=== PATIENT | male | born 1985 | race Caucasian/White ===

== ENCOUNTER 2016-11-02 14:23 | Emergency (ER) | payer OTHER ==
[~2016-11-02] VITALS: Wt 89.8 kg
[~2016-11-02 14:23] MED LIST: 'PARAFON FORTE500 M1 PO; AMOXICILLIN500 MG PO; ANAPROX DS550 MG PO; ASPIR 8181 MG; AUGMENTIN 875 M1 TAB PO; AUGMENTIN 875875 MG PO; BACTRIM DS 8001 TA1 PO; BP MED PO; CLARITIN-D 12 H1 TAB PO; CLARITIN10 MG PO; CLEOCIN150 MG PO; CLINDAMYCIN HC300 MG PO; DARVOCET N 1001 TAB PO; FLEXERIL10 MG PO; FLONASE ALLERG9.9 ML NAS; IBU-8800 MG PO; IBU800 MG PO; KEFLEX500 MG PO; KLONOPIN1 M1 PO; LIDOCAINE VISC100 ML MM; MEDROL DOSEPAK4 MG PO; METOPROLOL25 MG PO; MOTRIN800 MG PO; Motrin,Rufen800 MG PO; NAPROSYN500 MG PO; NEURONTIN300 MG PO; NORCO 5-325 TA1 EACH PO; PREDNICOT20 MG PO; PREDNISONE10 MG PO; PRILOSEC20 MG; PRILOSEC40 MG PO; PYRIDIUM200 M1 PO; Peridex 473 ML473 ML PO; ROBITUSSIN DM 105 ML PO; SKELAXIN800 MG PO; TRAMADOL HCL50 MG PO; TRIMOX500 MG PO; VALIUM5 MG PO; VICODIN 5/500 505 MG PO; XANAX1 MG; ZITHROMAX Z PA250 MG PO; ZOFRAN ODT4 MG SL
[2016-11-02] MEDS ORDERED: NAPROSYN500 MG PO (14:52)
[2016-11-02] MEDS ORDERED: 'PARAFON FORTE500 M1 PO (14:52)
[2016-11-02 17:03] VITALS: BP 132/82
[2016-11-02] MEDS ORDERED: Motrin,Rufen800 MG PO (17:16)
== END 2016-11-02 17:01 | disposition home or self-care (01) ==
LOC: ED 14:23
DX: S39.011A Strain of muscle, fascia and tendon of abdomen, initial encounter (principal); R03.0 Elevated blood-pressure reading, without diagnosis of hypertension; F17.200 Nicotine dependence, unspecified, uncomplicated; Z98.890 Other specified postprocedural states; Z79.899 Other long term (current) drug therapy; Z88.4 Allergy status to anesthetic agent; X58.XXXA Exposure to other specified factors, initial encounter; Y93.89 Activity, other specified; Y92.89 Other specified places as the place of occurrence of the external cause; Y99.9 Unspecified external cause status

== ENCOUNTER 2017-02-26 15:24 | Emergency (ER) | payer OTHER ==
[~2017-02-26] VITALS: Wt 89.8 kg
[2017-02-26] MEDS ORDERED: 'XANAX1 MG PO (15:36)
[2017-02-26 16:01] VITALS: BP 126/88
[2017-02-26] MEDS ORDERED: VISTARIL25 MG PO (16:03)
[2017-02-26] MEDS ORDERED: ZOFRAN ODT4 MG SL (16:03)
== END 2017-02-26 16:08 | disposition home or self-care (01) ==
LOC: ED 15:24
DX: F41.9 Anxiety disorder, unspecified (principal); F17.200 Nicotine dependence, unspecified, uncomplicated; Z88.8 Allergy status to other drugs, medicaments and biological substances; Z79.82 Long term (current) use of aspirin; Z79.899 Other long term (current) drug therapy

== ENCOUNTER 2017-07-15 13:07 | Emergency (ER) | payer OTHER ==
[~2017-07-15] VITALS: Wt 89.8 kg
[~2017-07-15 13:07] MED LIST changes: +'XANAX1 MG PO; +VISTARIL25 MG PO
[2017-07-15 13:08] VITALS: BP 141/82
[2017-07-15] MEDS ORDERED: ROBITUSSIN DM 105 ML PO (13:15)
[2017-07-15] MEDS ORDERED: FLONASE ALLERG9.9 ML NAS (13:15)
[2017-07-15] MEDS ORDERED: PREDNISONE10 MG PO (13:15)
[2017-07-15] MEDS ORDERED: CLARITIN10 MG PO (13:15)
[2017-07-15 14:30] LABS: BASO # 0.1 10*3/uL (0.0-0.1); BASO % 0.3 % (0.0-1.0); EOS # 0.2 10*3/uL (0.0-0.4); EOS % 1.1 % (1.0-4.0); HEMATOCRIT 47.2 % (42.0-52.0); HEMOGLOBIN 16.3 g/dl (14.0-18.0); LYMPH # 3.8 10*3/uL (1.3-4.4); LYMPH % 23.9 % (27.0-41.0); MEAN CELL VOLUME 92.2 fl (80.0-94.0); MEAN CORPUSCULAR HGB 31.8 pg (27.0-31.0); MEAN CORPUSCULAR HGB CONC 34.5 g/dl (33.0-37.0); MEAN PLATELET VOLUME 11.1 fl (9.6-12.3); MONO % 6.3 % (3.0-9.0); NEUT # 10.7 10*3/uL (2.3-7.9); NEUT % 68.1 % (47.0-73.0); PLATELET COUNT AUTOMATED 192 10*3/uL (130-400); RED BLOOD COUNT 5.12 10*6/uL (4.50-5.90); RED CELL DISTRI WIDTH 12.3 % (0-14.5); WHITE BLOOD COUNT 15.7 10*3/uL (4.8-10.8)
[2017-07-15 14:42] LABS: BUN 12 mg/dl (7-24); CHLORIDE 101 mmol/L (98-107); CREATININE 1.12 mg/dL (0.70-1.30); POTASSIUM 3.9 mmol/L (3.5-5.1); SODIUM 139 mmol/L (136-145)
== END 2017-07-15 17:42 | disposition home or self-care (01) ==
LOC: ED 13:07
PROVIDERS: Nurse Practitioner Family
DX: I71.2 Thoracic aortic aneurysm, without rupture (principal); B34.9 Viral infection, unspecified; R03.0 Elevated blood-pressure reading, without diagnosis of hypertension; F17.200 Nicotine dependence, unspecified, uncomplicated; Z98.890 Other specified postprocedural states; Z79.82 Long term (current) use of aspirin; Z79.899 Other long term (current) drug therapy; Z88.8 Allergy status to other drugs, medicaments and biological substances

== ENCOUNTER 2017-12-03 12:18 | Emergency (ER) | payer OTHER ==
[~2017-12-03] VITALS: Ht 185.4 cm; Wt 85.7 kg
[2017-12-03 12:24] VITALS: BP 131/78
[2017-12-03] MEDS ORDERED: ELIMITE 5%60 GM T (12:42)
[2017-12-03] MEDS ORDERED: BENADRYL ALLERG25 M5 PO (12:42)
== END 2017-12-03 12:39 | disposition home or self-care (01) ==
LOC: ED 12:18
DX: B86 Scabies (principal); Z88.4 Allergy status to anesthetic agent; Z79.899 Other long term (current) drug therapy

== ENCOUNTER 2017-12-18 14:52 | Emergency (ER) | payer OTHER ==
[~2017-12-18] VITALS: Ht 185.4 cm; Wt 85.7 kg
[~2017-12-18 14:52] MED LIST changes: +BENADRYL ALLERG25 M5 PO; +ELIMITE 5%60 GM T
[2017-12-18 14:55] VITALS: BP 113/68
[2017-12-18] MEDS ORDERED: BENADRYL25 M2 PO (15:01)
[2017-12-18] MEDS ORDERED: MEDROL DOSEPAK4 MG PO (15:01)
== END 2017-12-18 15:01 | disposition home or self-care (01) ==
LOC: ED 14:52
DX: L23.7 Allergic contact dermatitis due to plants, except food (principal); Z79.899 Other long term (current) drug therapy; Z88.4 Allergy status to anesthetic agent

== ENCOUNTER 2018-01-08 13:43 | Emergency (ER) | payer OTHER ==
[~2018-01-08] VITALS: Ht 185.4 cm; Wt 83.9 kg
[~2018-01-08 13:43] MED LIST changes: +BENADRYL25 M2 PO
[2018-01-08 14:22] LABS: BASO # 0.1 10*3/uL (0.0-0.1); BASO % 0.6 % (0.0-1.0); EOS # 0.2 10*3/uL (0.0-0.4); EOS % 1.9 % (1.0-4.0); HEMATOCRIT 48.1 % (42.0-52.0); HEMOGLOBIN 16.3 g/dl (14.0-18.0); LYMPH # 3.9 10*3/uL (1.3-4.4); LYMPH % 36.3 % (27.0-41.0); MEAN CELL VOLUME 89.9 fl (80.0-94.0); MEAN CORPUSCULAR HGB 30.5 pg (27.0-31.0); MEAN CORPUSCULAR HGB CONC 33.9 g/dl (33.0-37.0); MEAN PLATELET VOLUME 11.2 fl (9.6-12.3); MONO # 0.9 10*3/uL (0.1-1.0); MONO % 8.5 % (3.0-9.0); NEUT # 5.6 10*3/uL (2.3-7.9); NEUT % 52.1 % (47.0-73.0); PLATELET COUNT AUTOMATED 249 10*3/uL (130-400); RED BLOOD COUNT 5.35 10*6/uL (4.50-5.90); RED CELL DISTRI WIDTH 12.6 % (0-14.5); WHITE BLOOD COUNT 10.8 10*3/uL (4.8-10.8)
[2018-01-08 14:28] LABS: ACT PARTIAL THROMBO TIME 23.5 SECONDS (20.8-31.5); INTERNATIONAL NORM RATIO 0.9 (2.0-3.5)
[2018-01-08 14:34] LABS: ALBUMIN 3.9 gm/dl (3.1-4.5); ALKALINE PHOSPHATASE 119 U/L (45-117); BUN 10 mg/dl (7-24); CHLORIDE 104 mmol/L (98-107); CREATININE 1.17 mg/dL (0.70-1.30); LIPASE 97 U/L (73-393); SGOT/AST 33 IU/L (3-35); SGPT/ALT 137 U/L (12-78); SODIUM 138 mmol/L (136-145); TOTAL PROTEIN 7.5 gm/dL (6.4-8.2); TROPONIN I < 0.015 ng/ml (<0.045)
[2018-01-08 15:04] LABS: BILIRUBIN NEGATIVE (NEGATIVE); BLOOD 1+ (NEGATIVE); CLARITY CLEAR (CLEAR); COLOR YELLOW (YELLOW); GLUCOSE NEGATIVE (NEGATIVE); KETONE NEGATIVE (NEGATIVE); LEUKO ESTERASE NEGATIVE (NEGATIVE); NITRITE NEGATIVE (NEGATIVE); PH 7.5 (5.0-9.0); UROBILINOGEN 0.2 E.U./dl (0.2-1.0)
[2018-01-08 15:09] VITALS: BP 126/73
[2018-01-08 15:12] LABS: EPITHELIAL CELLS 0-2; WBC 0-2 wbc/hpf (0-5)
== END 2018-01-08 16:01 | disposition home or self-care (01) ==
LOC: ED 13:43
PROVIDERS: Emergency Medicine
DX: K29.00 Acute gastritis without bleeding (principal); Z88.4 Allergy status to anesthetic agent; Z79.899 Other long term (current) drug therapy

== ENCOUNTER 2018-09-17 09:23 | Emergency (ER) | payer OTHER ==
[2018-09-17 09:26] VITALS: BP 123/78
[2018-09-17] MEDS ORDERED: PREDNISONE20 M1 PO (12:23)
[2018-09-17] MEDS ORDERED: AMOXICILLIN500 M2 PO (12:23)
[2018-09-17] MEDS ORDERED: ROBITUSSIN DM 105 ML PO (12:23)
[2019-01-12] MEDS ORDERED: ZITHROMAX250 MG PO (13:07)
== END 2018-09-17 12:45 | disposition home or self-care (01) ==
LOC: ED 09:23
DX: J20.9 Acute bronchitis, unspecified (principal); Z88.4 Allergy status to anesthetic agent; Z79.899 Other long term (current) drug therapy

== ENCOUNTER → 2019-06-11 | Outpatient (CLI) | payer OTHER ==
[~2019-06-11] MED LIST changes: +AMOXICILLIN500 M2 PO; +PREDNISONE20 M1 PO; +ZITHROMAX250 MG PO
[2019-06-11 14:34] LABS: BUN 18 mg/dl (7-24); CHLORIDE 103 mmol/L (98-107); CREATININE 1.11 mg/dL (0.70-1.30); POTASSIUM 4.1 mmol/L (3.5-5.1); SODIUM 137 mmol/L (136-145)
[2019-06-14 15:05] LABS: GLUTAMIC ACID DECARB AB 143008 143.7 U/mL (0.0-5.0)
== END | disposition home or self-care (01) ==
LOC: LAB 13:53
PROVIDERS: Internal Medicine Endocrinology, Diabetes & Metabolism
DX: E11.65 Type 2 diabetes mellitus with hyperglycemia (principal); E55.9 Vitamin D deficiency, unspecified

== ENCOUNTER 2019-07-26 09:33 | Emergency (ER) | payer OTHER, MEDICARE ==
[~2019-07-26] VITALS: Ht 185.4 cm; Wt 83.9 kg
[2019-07-26 11:45] VITALS: BP 121/78
[2019-07-26] MEDS ORDERED: ROBAXIN-750750 MG PO (11:46)
== END 2019-07-26 12:04 | disposition home or self-care (01) ==
LOC: ED 09:33
DX: S13.4XXA Sprain of ligaments of cervical spine, initial encounter (principal); S40.022A Contusion of left upper arm, initial encounter; Z88.6 Allergy status to analgesic agent; Z79.899 Other long term (current) drug therapy; Z79.82 Long term (current) use of aspirin; V49.9XXA Car occupant (driver) (passenger) injured in unspecified traffic accident, initial encounter; Y93.89 Activity, other specified; Y92.89 Other specified places as the place of occurrence of the external cause; Y99.8 Other external cause status

== ENCOUNTER 2019-10-02 11:31 | Emergency (ER) | payer MEDICARE ==
[~2019-10-02] VITALS: Ht 185.4 cm; Wt 82.6 kg
[~2019-10-02 11:31] MED LIST changes: +ROBAXIN-750750 MG PO
[2019-10-02 11:36] VITALS: BP 112/68
[2019-10-02] MEDS ORDERED: AMOXICILLIN500 M2 PO (11:56)
== END 2019-10-02 12:05 | disposition home or self-care (01) ==
LOC: ED 11:31
DX: K11.5 Sialolithiasis (principal); Z88.4 Allergy status to anesthetic agent; Z79.899 Other long term (current) drug therapy; Z79.82 Long term (current) use of aspirin; Z87.891 Personal history of nicotine dependence

== ENCOUNTER 2020-03-05 14:32 | Emergency (ER) | payer MEDICARE ==
[~2020-03-05] VITALS: Ht 185.4 cm; Wt 82.6 kg
[2020-03-05 14:48] VITALS: BP 149/90
[2020-03-05] MEDS ORDERED: KENALOG 0.025%15 GM T (14:52)
== END 2020-03-05 15:22 | disposition home or self-care (01) ==
LOC: ED 14:32
DX: L25.9 Unspecified contact dermatitis, unspecified cause (principal); E10.9 Type 1 diabetes mellitus without complications; Z88.4 Allergy status to anesthetic agent; Z79.899 Other long term (current) drug therapy; Z79.82 Long term (current) use of aspirin

== ENCOUNTER → 2020-07-20 | Outpatient (CLI) | payer MEDICARE ==
[~2020-07-20] MED LIST changes: +KENALOG 0.025%15 GM T
[2020-07-20 14:16] LABS: BUN 15 mg/dl (7-24); CREATININE 1.21 mg/dL (0.70-1.30)
== END | disposition home or self-care (01) ==
LOC: LAB 13:45
PROVIDERS: ATTEND Surgery
DX: I35.1 Nonrheumatic aortic (valve) insufficiency (principal)

== ENCOUNTER 2021-08-30 15:31 | Emergency (ER) | payer MEDICARE ==
[2021-08-30 16:00] LABS: MEAN CELL VOLUME 91.2 fl (80.0-94.0); MEAN CORPUSCULAR HGB 32.2 pg (27.0-31.0); MEAN CORPUSCULAR HGB CONC 35.3 g/dl (33.0-37.0); MEAN PLATELET VOLUME 10.9 fl (9.6-12.3); PLATELET COUNT AUTOMATED 221 10*3/uL (130-400); RED BLOOD COUNT 5.37 10*6/uL (4.50-5.90); RED CELL DISTRI WIDTH 12.6 % (0-14.5); WHITE BLOOD COUNT 13.9 10*3/uL (4.8-10.8)
[2021-08-30 16:11] LABS: ACT PARTIAL THROMBO TIME 25.8 SECONDS (20.0-32.1)
[2021-08-30 16:15] LABS: ALBUMIN 3.9 gm/dl (3.1-4.5); ALKALINE PHOSPHATASE 127 U/L (45-117); BUN 14 mg/dl (7-24); CHLORIDE 99 mmol/L (98-107); CREATININE 1.21 mg/dL (0.70-1.30); POTASSIUM 3.5 mmol/L (3.5-5.1); SGOT/AST 71 IU/L (3-35); SGPT/ALT 130 U/L (12-78); SODIUM 135 mmol/L (136-145); TOTAL PROTEIN 7.6 gm/dL (6.4-8.2)
[2021-08-30 16:21] LABS: ATYPICAL LYMPHS 4 % (0-0); BASOPHILS 1 % (0-1); PLATELET SUFFICIENCY NORMAL (NORMAL); TOTAL CELLS COUNTED 100 #CELLS
[2021-08-30 17:45] VITALS: BP 132/64
== END 2021-08-30 20:43 | disposition home or self-care (01) ==
LOC: ED 15:31
PROVIDERS: Emergency Medicine
DX: I47.1 Supraventricular tachycardia (principal); D72.829 Elevated white blood cell count, unspecified; R79.89 Other specified abnormal findings of blood chemistry; E11.65 Type 2 diabetes mellitus with hyperglycemia; Z88.4 Allergy status to anesthetic agent; Z79.899 Other long term (current) drug therapy

== ENCOUNTER → 2022-06-30 | Outpatient (CLI) | payer MEDICARE ==
[2022-06-30 13:22] LABS: BILIRUBIN Negative (Negative); BLOOD 2+ (Negative); CLARITY Clear (Clear); COLOR Yellow (Yellow); GLUCOSE 1+ (Negative); KETONE Trace (Negative); LEUKO ESTERASE Negative (Negative); NITRITE Negative (Negative); PH 6.5 (4.5-8.0)
[2022-06-30 13:23] LABS: BASO # 0.1 10*3/uL (0.0-0.1); EOS # 0.2 10*3/uL (0.0-0.4); EOS % 2.8 % (1.0-4.0); HEMATOCRIT 49.9 % (42.0-52.0); LYMPH # 2.6 10*3/uL (1.3-4.4); LYMPH % 31.1 % (27.0-41.0); MEAN CELL VOLUME 92.8 fl (80.0-94.0); MEAN CORPUSCULAR HGB 32.5 pg (27.0-31.0); MEAN CORPUSCULAR HGB CONC 35.1 g/dl (33.0-37.0); MEAN PLATELET VOLUME 11.4 fl (9.6-12.3); MONO # 0.8 10*3/uL (0.1-1.0); MONO % 9.6 % (3.0-9.0); NEUT # 4.5 10*3/uL (2.3-7.9); NEUT % 55.1 % (47.0-73.0); PLATELET COUNT AUTOMATED 175 10*3/uL (130-400); RED BLOOD COUNT 5.38 10*6/uL (4.50-5.90); RED CELL DISTRI WIDTH 12.2 % (0-14.5); RETICULOCYTE % 2.24 % (0.50-2.50); WHITE BLOOD COUNT 8.2 10*3/uL (4.8-10.8)
[2022-06-30 13:40] LABS: ALKALINE PHOSPHATASE 122 U/L (45-117); BUN 11 mg/dl (7-24); CHLORIDE 102 mmol/L (98-107); CHOLESTEROL 216 mg/dL (<200); CREATININE 0.93 mg/dL (0.70-1.30); GAMMA GLUTAMYL TRANSPEPTIDASE 134 U/L (15-85); IRON 103 ug/dL (65-175); LDL CHOLESTEROL 154 mg/dL (9-159); POTASSIUM 4.3 mmol/L (3.5-5.1); SGPT/ALT 68 U/L (12-78); SODIUM 136 mmol/L (136-145); TOTAL PROTEIN 7.4 gm/dL (6.4-8.2); TRIGLYCERIDES 125 mg/dl (<150)
[2022-06-30 13:54] LABS: RBC 16-20 rbc/hpf (0-2)
[2022-06-30 13:55] LABS: BACTERIA TRACE; EPITHELIAL CELLS 0-2
[2022-06-30 15:10] LABS: VITAMIN D, 25-HYDROXY 21.7 ng/mL (30-100)
[2022-07-01 08:07] LABS: CREATININE,URINE 199.1 mg/dL (Not Estab.)
== END | disposition home or self-care (01) ==
LOC: LAB 12:38
PROVIDERS: ATTEND Family Medicine
DX: R79.89 Other specified abnormal findings of blood chemistry (principal); R53.83 Other fatigue; E78.5 Hyperlipidemia, unspecified; E55.9 Vitamin D deficiency, unspecified; R74.8 Abnormal levels of other serum enzymes

== ENCOUNTER → 2022-12-22 | Outpatient (CLI) | payer MEDICARE ==
[2022-12-22 15:02] LABS: BILIRUBIN Negative (Negative); BLOOD 1+ (Negative); CLARITY Clear (Clear); COLOR Yellow (Yellow); GLUCOSE 3+ (Negative); KETONE Trace (Negative); LEUKO ESTERASE Negative (Negative); NITRITE Negative (Negative); PH 7.5 (4.5-8.0); SPECIFIC GRAVITY 1.015 (1.001-1.030)
[2022-12-22 15:30] LABS: BACTERIA TRACE
[2022-12-22 15:43] LABS: ALKALINE PHOSPHATASE 116 U/L (46-116); BUN 9 mg/dl (9-23); CHLORIDE 96 mmol/L (98-107); CHOLESTEROL 227 mg/dL (<200); LDL CHOLESTEROL 141 mg/dL (9-159); SGPT/ALT 93 U/L (10-49); THYROID STIM HORMONE (HS) 1.366 uIU/ml (0.550-4.780); TOTAL PROTEIN 7.4 gm/dL (6.0-8.0); TRIGLYCERIDES 198 mg/dl (<150)
== END | disposition home or self-care (01) ==
LOC: LAB 14:40
PROVIDERS: ATTEND Internal Medicine
DX: E10.65 Type 1 diabetes mellitus with hyperglycemia (principal); E55.9 Vitamin D deficiency, unspecified; E04.9 Nontoxic goiter, unspecified; E78.5 Hyperlipidemia, unspecified

== ENCOUNTER 2023-07-02 19:10 | Emergency (ER) | payer MEDICARE ==
[~2023-07-02] VITALS: Ht 185.4 cm; Wt 89.8 kg
[2023-07-02 20:02] LABS: BASO # 0.1 10*3/uL (0.0-0.1); BASO % 0.6 % (0.0-1.0); EOS # 0.2 10*3/uL (0.0-0.4); EOS % 1.5 % (1.0-4.0); HEMATOCRIT 49.2 % (42.0-52.0); LYMPH # 4.8 10*3/uL (1.3-4.4); LYMPH % 42.9 % (27.0-41.0); MEAN CELL VOLUME 91.8 fl (80.0-94.0); MEAN PLATELET VOLUME 11.1 fl (9.6-12.3); MONO # 0.9 10*3/uL (0.1-1.0); MONO % 8.1 % (3.0-9.0); NEUT # 5.2 10*3/uL (2.3-7.9); NEUT % 46.6 % (47.0-73.0); PLATELET COUNT AUTOMATED 193 10*3/uL (130-400); RED BLOOD COUNT 5.36 10*6/uL (4.50-5.90); RED CELL DISTRI WIDTH 12.5 % (0-14.5); WHITE BLOOD COUNT 11.1 10*3/uL (4.8-10.8)
[2023-07-02 20:12] LABS: ACT PARTIAL THROMBO TIME 25.4 SECONDS (20.0-32.1)
[2023-07-02 20:27] LABS: ALKALINE PHOSPHATASE 143 U/L (46-116); BUN 15 mg/dl (9-23); CHLORIDE 99 mmol/L (98-107); ETHYL ALCOHOL < 3.0 mg/dl (<3); LIPASE 62 U/L (12-53); POTASSIUM 3.9 mmol/L (3.4-5.1); SGPT/ALT 121 U/L (5-49); TOTAL PROTEIN 7.3 gm/dL (6.0-8.0)
[2023-07-02 20:28] LABS: BILIRUBIN Negative (Negative); BLOOD 1+ (Negative); CLARITY Clear (Clear); COLOR Yellow (Yellow); GLUCOSE 3+ (Negative); KETONE Trace (Negative); LEUKO ESTERASE Negative (Negative); NITRITE Negative (Negative); SPECIFIC GRAVITY >= 1.030 (1.001-1.030)
[2023-07-02 20:35] LABS: URINE AMPHETAMINES Negative (1000ng/ml); URINE BARBITURATES Negative (200ng/ml); URINE BENZODIAZEPINES Positive (200ng/ml); URINE CANNABINOIDS (THC) Positive (50ng/ml); URINE COCAINE Negative (300ng/ml); URINE METHADONE Negative (300ng/ml); URINE OPIATES Negative (300ng/ml); URINE PHENCYCLIDINE Negative (25ng/ml)
[2023-07-02 20:40] LABS: WBC 0-2 wbc/hpf (0-5)
[2023-07-03 00:14] VITALS: BP 145/82
== END 2023-07-03 00:41 | disposition home or self-care (01) ==
LOC: ED 19:10
PROVIDERS: Internal Medicine
DX: I47.10 Supraventricular tachycardia, unspecified (principal); E11.9 Type 2 diabetes mellitus without complications; F31.9 Bipolar disorder, unspecified; Z88.8 Allergy status to other drugs, medicaments and biological substances; Z98.890 Other specified postprocedural states; Z79.899 Other long term (current) drug therapy

== ENCOUNTER → 2023-10-12 | Outpatient (CLI) | payer MEDICARE ==
[2023-10-12 11:08] LABS: BILIRUBIN Negative (Negative); BLOOD 1+ (Negative); CLARITY Clear (Clear); COLOR Yellow (Yellow); GLUCOSE 3+ (Negative); KETONE Trace (Negative); LEUKO ESTERASE Negative (Negative); NITRITE Negative (Negative); SPECIFIC GRAVITY >= 1.030 (1.001-1.030)
[2023-10-12 11:15] LABS: BUN 11 mg/dl (9-23); CHLORIDE 101 mmol/L (98-107); POTASSIUM 3.9 mmol/L (3.4-5.1)
[2023-10-12 11:21] LABS: FREE T4 1.19 ng/dl (0.89-1.76); TOTAL PROTEIN 7.1 gm/dL (6.0-8.0)
[2023-10-12 11:27] LABS: MUCOUS TRACE; RBC 21-30 rbc/hpf (0-2)
== END | disposition home or self-care (01) ==
LOC: LAB 10:27
PROVIDERS: ATTEND Internal Medicine
DX: Z01.812 Encounter for preprocedural laboratory examination (principal); E10.65 Type 1 diabetes mellitus with hyperglycemia; E55.9 Vitamin D deficiency, unspecified; E04.9 Nontoxic goiter, unspecified; E78.5 Hyperlipidemia, unspecified

== ENCOUNTER → 2023-10-13 | Outpatient (CLI) | payer MEDICARE ==
[~2023-10-13] MED LIST changes: +IOHEXOL 350 MG/ML 100 ML VIAL IV ONE; +SODIUM CHLORIDE 0.9% 100 ML BAG IV ONE
== END | disposition home or self-care (01) ==
LOC: CT 01:13
PROVIDERS: ATTEND Family Medicine
DX: I71.20 Thoracic aortic aneurysm, without rupture, unspecified (principal); K76.0 Fatty (change of) liver, not elsewhere classified; Z98.890 Other specified postprocedural states

== ENCOUNTER 2024-03-01 20:33 | Emergency (ER) | payer MEDICARE ==
[~2024-03-01] VITALS: Ht 187.9 cm; Wt 86.2 kg
[2024-03-01 20:33] VITALS: BP 150/68
[~2024-03-01 20:33] MED LIST changes: -IOHEXOL 350 MG/ML 100 ML VIAL IV ONE; -SODIUM CHLORIDE 0.9% 100 ML BAG IV ONE
[2024-03-01] MEDS ORDERED: diphenhydrAMINE hydrochloride 50 MG/ML VIAL IM ONE (21:00)
[2024-03-01] MEDS ORDERED: Dexamethasone Sodium Phospha 20 MG/5 ML VIAL IM ONE (21:00)
[2024-03-01] MEDS ORDERED: FAMOTIDINE 20 MG TAB PO ONE (21:00)
[2024-03-01] MEDS ORDERED: PREDNISONE50 MG PO (21:02)
[2024-03-01] MEDS ORDERED: BENADRYL ALLERG50 MG PO (21:02)
[2024-03-01] MEDS ORDERED: FAMOTIDINE 50 ML IV ONE (21:20)
== END 2024-03-01 21:45 | disposition home or self-care (01) ==
LOC: ED 20:33
DX: J30.1 Allergic rhinitis due to pollen (principal); E11.9 Type 2 diabetes mellitus without complications; F31.9 Bipolar disorder, unspecified; Z88.8 Allergy status to other drugs, medicaments and biological substances; Z98.890 Other specified postprocedural states

== ENCOUNTER 2024-11-22 22:44 | Emergency (ER) | payer MEDICARE ==
[~2024-11-22] VITALS: Ht 185.4 cm; Wt 98.0 kg
[~2024-11-22 22:44] MED LIST changes: +BENADRYL ALLERG50 MG PO; +PREDNISONE50 MG PO
[2024-11-22 23:07] VITALS: BP 175/81
[2024-11-22] MEDS ORDERED: ADENOSINE 6 MG/2 ML VIAL IV ONE (23:16)
[2024-11-22] MEDS ORDERED: SODIUM CHLORIDE 0.9% 2,000 ML IV ONE (23:17)
[2024-11-22 23:38] LABS: BASO # 0.1 10*3/uL (0.0-0.1); BASO % 0.8 % (0.0-1.0); EOS # 0.1 10*3/uL (0.0-0.4); EOS % 1.4 % (1.0-4.0); MEAN CELL VOLUME 93.7 fl (80.0-94.0); MEAN CORPUSCULAR HGB 32.2 pg (27.0-31.0); MEAN CORPUSCULAR HGB CONC 34.3 g/dl (33.0-37.0); MEAN PLATELET VOLUME 11.3 fl (9.6-12.3); MONO # 0.7 10*3/uL (0.1-1.0); MONO % 7.9 % (3.0-9.0); NEUT % 59.8 % (47.0-73.0); PLATELET COUNT AUTOMATED 159 10*3/uL (130-400); RED BLOOD COUNT 4.91 10*6/uL (4.50-5.90); RED CELL DISTRI WIDTH 12.5 % (0-14.5); WHITE BLOOD COUNT 8.4 10*3/uL (4.8-10.8)
[2024-11-22 23:58] LABS: ACT PARTIAL THROMBO TIME 23.8 SECONDS (20.0-32.1)
[2024-11-23 00:13] LABS: ALKALINE PHOSPHATASE 119 U/L (46-116); BUN 9 mg/dl (9-23); CHLORIDE 99 mmol/L (98-107); POTASSIUM 3.9 mmol/L (3.4-5.1); SGPT/ALT 73 U/L (5-49); TOTAL PROTEIN 6.3 gm/dL (6.0-8.0)
[2024-11-23] MEDS ORDERED: MAGNESIUM SULFATE 100 ML IV ONE (00:35)
== END 2024-11-23 02:31 | disposition home or self-care (01) ==
LOC: ED 22:44
PROVIDERS: Internal Medicine
DX: I47.10 Supraventricular tachycardia, unspecified (principal); I71.21 Aneurysm of the ascending aorta, without rupture; Z98.890 Other specified postprocedural states; Z88.4 Allergy status to anesthetic agent; Z79.899 Other long term (current) drug therapy

== ENCOUNTER → 2025-02-10 | Outpatient (CLI) | payer MEDICARE ==
[2025-02-10 14:39] LABS: BILIRUBIN Negative (Negative); BLOOD 1+ (Negative); CLARITY Clear (Clear); COLOR Yellow (Yellow); GLUCOSE 3+ (Negative); KETONE Trace (Negative); LEUKO ESTERASE Negative (Negative); NITRITE Negative (Negative); SPECIFIC GRAVITY >= 1.030 (1.001-1.030)
[2025-02-10 14:45] LABS: BASO # 0.1 10*3/uL (0.0-0.1); BASO % 0.7 % (0.0-1.0); EOS # 0.2 10*3/uL (0.0-0.4); EOS % 2.1 % (1.0-4.0); HEMATOCRIT 50.8 % (42.0-52.0); MEAN CELL VOLUME 92.4 fl (80.0-94.0); MEAN CORPUSCULAR HGB 31.8 pg (27.0-31.0); MEAN CORPUSCULAR HGB CONC 34.4 g/dl (33.0-37.0); MEAN PLATELET VOLUME 11.2 fl (9.6-12.3); MONO # 0.7 10*3/uL (0.1-1.0); MONO % 9.2 % (3.0-9.0); NEUT # 4.3 10*3/uL (2.3-7.9); NEUT % 56.2 % (47.0-73.0); PLATELET COUNT AUTOMATED 142 10*3/uL (130-400); RETICULOCYTE % 1.78 % (0.50-2.50); WHITE BLOOD COUNT 7.6 10*3/uL (4.8-10.8)
[2025-02-10 14:57] LABS: BACTERIA TRACE; EPITHELIAL CELLS 0-2; WBC 0-2 wbc/hpf (0-5)
[2025-02-10 15:04] LABS: ALKALINE PHOSPHATASE 164 U/L (46-116); BUN 10 mg/dl (9-23); CHLORIDE 98 mmol/L (98-107); CHOLESTEROL 174 mg/dL (<200); LDL CHOLESTEROL 62 mg/dL (9-159); SGPT/ALT 106 U/L (5-49); TOTAL PROTEIN 7.1 gm/dL (6.0-8.0); TRIGLYCERIDES 387 mg/dl (<150)
== END | disposition home or self-care (01) ==
LOC: LAB 14:12
PROVIDERS: Family Medicine; Student in an Organized Health Care Education/Training Program; ATTEND Family Medicine
DX: E10.43 Type 1 diabetes mellitus with diabetic autonomic (poly)neuropathy (principal); E55.9 Vitamin D deficiency, unspecified; E78.5 Hyperlipidemia, unspecified; R79.89 Other specified abnormal findings of blood chemistry; R53.83 Other fatigue

== ENCOUNTER 2025-04-24 04:55 | Emergency (ER) | payer MEDICARE ==
[~2025-04-24] VITALS: Ht 185.4 cm; Wt 86.2 kg
[2025-04-24] MEDS ORDERED: ADENOSINE 6 MG/2 ML VIAL IV ONE ×2 (05:00)
[2025-04-24] MEDS ORDERED: SODIUM CHLORIDE 0.9% 1,000 ML IV ONE (05:00)
[2025-04-24 05:39] LABS: BUN 13 mg/dl (9-23)
[2025-04-24 06:02] VITALS: BP 163/77
[2025-04-24 06:13] LABS: BASO # 0.1 10*3/uL (0.0-0.1); BASO % 0.7 % (0.0-1.0); EOS # 0.1 10*3/uL (0.0-0.4); EOS % 1.5 % (1.0-4.0); MEAN CELL VOLUME 95.3 fl (80.0-94.0); MEAN CORPUSCULAR HGB 32.2 pg (27.0-31.0); MEAN PLATELET VOLUME 12.6 fl (9.6-12.3); MONO # 0.7 10*3/uL (0.1-1.0); MONO % 8.5 % (3.0-9.0); NEUT # 3.7 10*3/uL (2.3-7.9); NEUT % 43.4 % (47.0-73.0); NUCLEATED RED BLOOD CELL 0.0 % (0.0-0.0); NUCLEATED RED BLOOD CELL 0.0 10*3/uL (0.0-0.0); PLATELET COUNT AUTOMATED 121 10*3/uL (130-400); RED CELL DISTRI WIDTH 12.7 % (0-14.5)
[2025-04-24] MEDS ORDERED: INSULIN REGULAR, HUMAN 1 UNIT/0.01 ML IV ONE (06:40)
== END 2025-04-24 06:54 | disposition home or self-care (01) ==
LOC: ED 04:55
PROVIDERS: Internal Medicine
DX: I47.10 Supraventricular tachycardia, unspecified (principal); E11.65 Type 2 diabetes mellitus with hyperglycemia; R42 Dizziness and giddiness; R53.1 Weakness; Z88.4 Allergy status to anesthetic agent; Z79.899 Other long term (current) drug therapy

== ENCOUNTER → 2025-05-20 | Outpatient (CLI) | payer MEDICARE ==
[2025-05-20 15:47] LABS: BUN 10 mg/dl (9-23); SGPT/ALT 83 U/L (5-49)
== END | disposition home or self-care (01) ==
LOC: LAB 14:44
PROVIDERS: ATTEND Internal Medicine Endocrinology, Diabetes & Metabolism
DX: E10.43 Type 1 diabetes mellitus with diabetic autonomic (poly)neuropathy (principal)